=== PATIENT | female | born 1990 | race American Indian/Alaskan Native ===

== ENCOUNTER 2021-08-21 10:29 | Emergency (ER) | payer SELFPAY ==
[2021-08-21 10:58] VITALS: BP 112/68
[2021-08-21] MEDS ORDERED: FLUORESCEIN 1 MG STRIP OP ONE (11:19)
[2021-08-21] MEDS ORDERED: TETRACAINE 0.5% OPHTH SOLN 4ML OU PRN (11:19)
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
== END 2021-08-22 16:13 | disposition left against medical advice (07) ==
LOC: ED 10:29
DX: S02.85XA Fracture of orbit, unspecified, initial encounter for closed fracture (principal); Y04.8XXA Assault by other bodily force, initial encounter; Y93.89 Activity, other specified; Y92.89 Other specified places as the place of occurrence of the external cause; Y99.8 Other external cause status
CPT/HCPCS: 70486; 99283